=== PATIENT | female | born 1965 | race Two or more races ===

== ENCOUNTER 2025-05-08 18:25 | Emergency (ER) | payer SELFPAY ==
[2025-05-08 18:35] VITALS: BP 138/80; PULSE 93; RESP 18; TEMP 37.2; O2SAT 95; BMI 38.9
--- NOTE | 2025-05-08 18:52 | EKG_ITS ---
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: : 1965 Requested By: Cleve Valencia Order Number: [id number] Reading MD: Cleve Valencia Measurements Intervals [place] Rate: 86 P: 46 AL: 161 QRS: 34 QRSD: 84 T: 57 QT: 351 QTc: 421 Interpretive Statements SINUS RHYTHM INDETERMINATE AXIS LOW QRS VOLTAGE IN PRECORDIAL LEADS [QRS DEFLECTION < 1.0 mV IN CHEST LEADS] POSSIBLE ANTERIOR MYOCARDIAL INFARCTION , OF INDETERMINATE AGE [30 ms Q WAVE IN V3/V4, OR R < 0.2 mV IN V4] Compared to ECG 07/23/2022 15:34:26 Indeterminate axis now present Low QRS voltage now present Myocardial infarct finding now present Sinus bradycardia no longer present /store/S0/[id number]
--- NOTE | 2025-05-08 18:52 | XR_ITS ---
Examination: PA chest single view Technique: Upright PA chest single view Date and time: May 08, 2025 1910 hours INDICATIONS: Chest pain and coughing beginning 2 days ago. FINDINGS: Normal heart size Normal lumbar pneumonia or pulmonary edema Moderate osteopenia IMPRESSION: No lobar pneumonia or pulmonary edema
--- NOTE | 2025-05-08 19:03 | EDNOTE_ITS ---
<Statement entered by Tatiana Kirk MD - 05/09/25 03:41> As co-signing physician, I was present and available for consult prn. I concur with the plan and care as documented by the midlevel provider. ED Chest Pain RME/HPI General Chief Complaint: Shortness of Breath/Dyspnea Stated Complaint: Right facial droop since am, chest pain X 2 days Time Seen by Provider: 05/08/25 18:52 Arrival date/time: 05/08/25 18:25 59F with history of DM presents to ED with 2 days of intermittent CP and cough, as well as 1 day of L facial droop. Patient denies vision changes, AMS, seizures, N/V, and weakness. Limitations: no limitations Related Data Home Medications ?Medication ?Instructions ?Recorded ?Confirmed metformin 500 mg tablet 500 mg PO HS #0 tabs 5 (Glucophage) hydroxyzine HCl 25 mg tablet 25 mg PO Q6HR PRN SLEEPLE SSNESS #0 03/10/17 tabs Previous Rx's ?Medication ?Instructions ?Recorded Hydrocodone/Acetaminophen * (NORCO 1 tab PO Q6H PRN PA IN #12 tabs 04/24/17 5/325 *) tobramycin 0.3 % eye drops 2 drop ophthalmic (eye) Q4H #5 mL 03/19/19 loratadine 10 mg tablet 10 mg PO QDAY #30 tabs 06/18 promethazine-DM 6.25 mg-15 mg/5 mL 5 ml PO Q6H PRN cou gh #118 mL 06/18/21 oral syrup clindamycin HCl 300 mg capsule 300 mg PO TID #21 caps 07/25/22 meloxicam 7.5 mg tablet 7.5 mg PO QDAY #14 tabs 11/0 02/16 sulfamethoxazole 800 1 tab PO BID #20 tabs mg-trimethoprim 160 mg tablet (Bactrim DS) acyclovir 400 mg tablet 400 mg PO Q5H 10 days #48 ta bs 05/08/25 prednisone 20 mg tablet See Rx Instructions .Route 0 05/08/25 .COMPLEX #25 tabs Allergies Allergy/AdvReac Type Severity Reaction Status Date / Time No Known Allergies Allergy Verified 05/08/25 18:32 Review of Systems Review of Systems Systems Reviewed: All systems reviewed, normal except as documented Constitutional Constitutional: Reports system reviewed and no additional complaints, except as documented, Denies fever(s) and Denies headache(s) ENT Ears, Nose, Mouth, and Throat: Denies disequilibrium and Denies headache(s) Cardiovascular Cardiovascular: Reports system reviewed and no additional complaints, except as documented, Reports as per HPI, Reports chest pain and Denies dyspnea Respiratory Respiratory: Reports system reviewed and no additional complaints, except as documented, Reports as per HPI, Reports cough and Denies dyspnea Gastrointestinal Gastrointestinal: Reports system reviewed and no additional complaints, except as documented, Denies abdominal pain, Denies nausea and Denies vomiting Neurologic Neurologic: Reports system reviewed and no additional complaints, except as documented, Reports as per HPI, Denies confusion, Denies disequilibrium, Denies headache(s) and Reports other (facial droop) Psychiatric Psychiatric: Denies confusion Past Medical History Past Medical History NEUROLOGIC: Negative Seizures CARDIAC: Negative Cardiac Disorders or Congestive Heart Failure RESPIRATORY: Negative Chronic Obstructive Pulmonary Disease (COPD) GENITOURINARY: Negative Genitourinary Disorders or Renal Disease MUSCULOSKELETAL: Negative Musculoskeletal Disorders ENDOCRINE: Positive Diabetes Mellitus Type 2; Negative Diabetes Mellitus Type 1 HEMATOLOGIC: Negative Blood Disorders OTHER HISTORY: Negative Blood Transfusions, Blood Transfusion Reaction or Anesthesia Reactions Social History SMOKING STATUS: Current every day smoker SECOND HAND EXPOSURE: No SUBSTANCE USE: does not use ED Exam General Limitations: Present no limitations General appearance: Present alert and in no apparent distress Head Head exam: Present atraumatic Eye Eye exam: Present normal appearance, PERRL and EOMI ENT ENT exam: Present normal oropharynx, mucous membranes moist and other (L facial droop) Neck Neck exam: Present normal inspection, full ROM and trachea midline Chest Chest inspection: Present normal inspection and symmetric chest wall rise Respiratory Respiratory exam: Present normal lung sounds bilaterally Cardiovascular Cardiovascular exam: Present regular rate, normal rhythm and normal heart sounds Abdominal Exam Abdominal exam: Present soft and normal bowel sounds Extremities Exam Extremities exam: Present normal inspection and full ROM Back Exam Back exam: Present normal inspection and full ROM Neurological Exam Neurological exam: Present alert, oriented X3 and CN II-XII intact Psychiatric Psychiatric exam: Present normal affect and normal mood Skin Skin exam: Present warm, dry, intact and normal color Course Quality Measures none Orders Category Date Time Status Bedside COVID-19 Antigen Test NOW Care 05/08/25 18:52 Active Bedside Influenza A&B Antigen Test NOW Care 05/08/25 18:53 Completed EKG (ED ONLY) *Do not use* NOW Care 05/08/25 18:52 Completed EKG (ED Only) Stat Exams 05/08/25 18:52 Draft XR chest 1V portable Stat Exams 05/08/25 18:52 Completed B-Type Natriuretic Peptide Stat Lab 05/08/25 19:29 Completed CBC Stat Lab 05/08/25 19:29 Completed Comprehensive Metabolic Panel Stat Lab 05/08/25 19:29 Completed Troponin I Stat Lab 05/08/25 19:29 Completed Acyclovir [Zovirax] Med 05/08/25 18:54 Discontinued 800 mg PO X1 ONE predniSONE Med 05/08/25 18:54 Discontinued 60 mg PO X1 ONE Vital Signs Vital signs: Vital Signs Temperature 99 F 05/08/25 18:35 Pulse Rate 93 05/08/25 18:35 Respiratory Rate 18 05/08/25 18:35 Blood Pressure 138/80 H 05/08/25 18:35 Pulse Oximetry (%) 95 05/08/25 18:35 Oxygen Delivery Method Room Air 05/08/25 18:35 O2 at 95% on RA and WNLs Chest Pain MDM Narrative MDM Narrative:: 59F with history of DM presents to ED with 2 days of intermittent CP and cough, as well as 1 day of L facial droop. Patient denies vision changes, AMS, seizures, N/V, and weakness. Physical exam reveals L facial droop including reduced forehead movement and L eyelid blinking. Normal pupil response and EOM. Strength equal bilaterally. Gait normal. Clear lungs. Normal WOB. Patient is afebriel, calm, and alert. EKG is NSR. No leukocytosis. CMP unremarkable. CXR normal. Normal trop and BNP. 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 Patient data External records reviewed:: [facility] previous records Clinical information provided by:: patient Social determinants that could affect healthcare access:: none Patient has the following chronic illnesses:: DM How is presenting disease/condition affected by chronic disease/condition?: exacerbated by Evaluation data The following diagnostics were reviewed and interpreted by me:: lab results, radiology exam(s) and EKG tracing(s) Lab and/or radiology exams considered but not ordered:: ordered Interpretation Summary: above Medications / Prescriptions Medications or Prescriptions considered but not ordered:: ordered Medication administrations:: Medication Administration History Discontinued Medications Acyclovir (Acyclovir 800 Mg Tablet) 800 mg PO X1 ONE Stop: 05/08/25 18:55 Last Admin: 05/08/25 19:27 Dose: 800 mg Documented By: OA Prednisone (Prednisone 20 Mg Tablet) 60 mg PO X1 ONE Stop: 05/08/25 18:55 Last Admin: 05/08/25 19:27 Dose: 60 mg Documented By: OLGA above Consultations Consultation(s) initiated? (list below): No Diagnosis Chest Pain Differential Diagnosis: fracture of rib, pneumothorax, stable angina, unstable angina pectoris, atypical chest pain, st elevation myocardial infarction, costochondritis, chest pain, biliary colic and other (CVA/TIA, Melo's Palsy) Most likely diagnosis given after review of the tests above:: atypical chest pain and Melo's Palsy Admission Indicated Admission indicated?: not indicated Admission Request Was there a request for admission?: No Disposition Plan Disposition Plan: Discharge Discharge Attestation Discharge Attestation: The patient and all family members were given an opportunity to ask questions and understood the discharge instructions. Discharge instructions specifically effects, indications for sooner follow up or return to the emergency department, and the expected course of current diagnosis. Patient condition: Stable Discharge Plan Plan Patient Disposition: HOME (Self Care) Discharge Disposition comment: Stable Prescriptions/Referrals Prescriptions/Med Rec: New prednisone 20 mg tablet See Rx Instructions .ROUTE .COMPLEX Qty: 25 0RF Rx Instructions: Take 60 mg (3 pills) per day for first 5 days, then 40 mg (2 pills) for remaining 5 days. acyclovir 400 mg tablet 400 mg PO Q5H 10 Days Qty: 48 0RF Rx Instructions: Take 5 per day until done. No Action metformin [Glucophage] 500 MG tablet 500 mg PO HS Qty: 0 hydroxyzine HCl 25 MG tablet 25 mg PO Q6HR PRN (Reason: SLEEPLESSNESS) Qty: 0 Hydrocodone/Acetaminophen * (NORCO 5/325 *) 1 TAB tablet 1 tab PO Q6H PRN (Reason: PAIN) Qty: 12 0RF promethazine-DM 6.25-15 mg/5 mL syrup 5 ml PO Q6H PRN (Reason: cough) Qty: 118 0RF loratadine 10 mg tablet 10 mg PO QDAY Qty: 30 0RF tobramycin 0.3 % drops 2 drop OPHTHALMIC Q4H Qty: 5 0RF clindamycin HCl 300 mg capsule 300 mg PO TID Qty: 21 0RF sulfamethoxazole-trimethoprim [Bactrim DS] 800-160 mg tablet 1 tab PO BID Qty: 20 0RF meloxicam 7.5 mg tablet 7.5 mg PO QDAY Qty: 14 0RF Referrals: Garett Gan MD [Primary Care Provider] - In 1 week Problem List Clinical Impression: Melo's palsy, Atypical chest pain Patient/Caregiver Discharge Instructions Education Materials: ED Melo's Palsy, ED Chest Pain, Uncertain Cause Additional Instructions: Please follow-up with PCP within 24-48 hours and return immediately if symptoms worsen. Steroids will increase your blood sugar, so check your sugars more closely. Print Language: Yakut Stand Alone Forms: Patient Portal Info Letter PA/PLUMBING ENGINEER Supervising Physician SUSAN/OZZY Supervising Physician: Dr. Kirk
[2025-05-08] MEDS: ACYCLOVIR 800 MG TABLET PO (19:27)
[2025-05-08] MEDS: predniSONE 20 MG TABLET 60 MG PO (19:27)
[2025-05-08 19:46] LABS: Basophils % (Auto) 0 % (0-2.5); Eosinophils # (Auto) 0.6 Thou/mm3 (0.0-0.5); Eosinophils % (Auto) 6 % (0-10); Hematocrit 41.8 % (36.0-46.0); Hemoglobin 14.9 g/dL (12.0-16.0); Immature Granulocytes % (Auto) 0 % (0-0); Immature Granulocytes Auto 0.02 Thou/mm3 (0.00-0.00); Lymphocytes # (Auto) 2.3 Thou/mm3 (1.0-4.8); Lymphocytes % (Auto) 22 % (10-50); Mean Corpuscular HGB Conc 35.6 g/dl (31.0-37.0); Mean Corpuscular Hemoglobin 31.4 pg (25.0-35.0); Mean Corpuscular Volume 88 fL (80-100); Monocytes # (Auto) 0.9 Thou/mm3 (0.0-0.8); Monocytes % (Auto) 8 % (0-12); Neutrophils # (Auto) 6.7 Thou/mm3 (1.8-7.7); Neutrophils % (Auto) 64 % (37-80); Nucleated Red Blood Cell % 0 /100 WBC (0); Platelet Count 260 Thou/mm3 (140-440); RDW Standard Deviation 44.6 fL (36.4-46.3); Red Blood Count 4.74 Miln/mm3 (4.00-5.20); White Blood Count 10.5 Thou/mm3 (3.6-11.0)
[2025-05-08 20:09] LABS: Alanine Aminotransferase 18 U/L (10-49); Albumin, Serum 4.3 gm/dL (3.5-5.0); Albumin/Globulin Ratio 1.6 (1.2-2.2); Alkaline Phosphatase 100 U/L (46-116); Anion Gap 8 (7-16); Aspartate Amino Transferase 14 U/L (0-34); BUN/Creatinine Ratio 20 Ratio (12-20); Bilirubin,Total 0.4 mg/dL (0.3-1.2); Blood Urea Nitrogen 12 mg/dL (9-23); Calcium 9.5 mg/dL (8.3-10.6); Calcium (Corrected) 9.5 mg/dL (8.5-10.1); Carbon Dioxide 29.2 mMol/L (20.0-31.0); Chloride 105 mMol/L (98-107); Creatinine (Component) 0.6 mg/dL (0.6-1.3); Estimated Creatinine Clearance 115.1 mL/min (>60); Globulin 2.7 gm/dL (2.3-3.5); Glucose 125 mg/dL (74-106); Osmolality,Calculated 283 (275-295); Sodium 142 mMol/L (136-145); Troponin I < 0.002 ng/mL (0.0-0.045); eGFR > 60 See Note
[2025-05-08 20:10] LABS: B-Type Natriuretic Peptide 48 pg/mL (0-100)
== END 2025-05-08 20:52 | disposition home or self-care (01) ==
PROVIDERS: Physician Assistant; Emergency Provider Emergency Medicine; PCP Family Medicine
DX: G51.0 Bell's palsy (principal); R07.89 Other chest pain; R05.9 Cough, unspecified; R94.31 Abnormal electrocardiogram [ECG] [EKG]
CPT/HCPCS: 36415; 71045; 80053; 83880; 84484; 85025; 87400; 87811; 93005; 99283; J7512; A9270

== ENCOUNTER 2025-08-23 17:59 | Emergency (ER) | payer MEDICAID, SELFPAY ==
[2025-08-23 18:49] VITALS: BP 106/69; PULSE 83; RESP 16; TEMP 37; O2SAT 94
--- NOTE | 2025-08-23 19:48 | PD.EDRME ---
Rapid Medical Screening Exam RME Arrival date/time: 08/23/25 17:59 This is a case of 60-year-old female with no medical history came in in the emergency room due to on and off headache for 1 week associated with abdominal pain nausea vomiting worsening of the symptoms this patient decided to start consult here in the emergency room Chief Complaint: Headache Time Seen by Provider: 08/23/25 18:38 Vital signs: Vital Signs Temperature 98.6 F 08/23/25 18:49 Pulse Rate 83 08/23/25 18:49 Respiratory Rate 16 08/23/25 18:49 Blood Pressure 106/69 08/23/25 18:49 Pulse Oximetry (%) 94 L 08/23/25 18:49 Oxygen Delivery Method Room Air 08/23/25 18:49
--- NOTE | 2025-08-23 20:07 | PD.EDHA ---
ED Headache RME/HPI General Chief Complaint: Headache Stated Complaint: HEADACHE, NAUSEA, JUST WANTS TO SLEEP Time Seen by Provider: 08/23/25 18:38 Arrival date/time: 08/23/25 17:59 RME / HPI RME / HPI Narrative: 08/23/25 17:59 This is a case of 60-year-old female with no medical history came in in the emergency room due to on and off headache for 1 week associated with abdominal pain nausea vomiting worsening of the symptoms this patient decided to start consult here in the emergency room DR. NJ MAIN ED EVALUATION: 60 y/o male with NIDDM now presenting with mild frontal headache, occasional nausea, abdominal discomfort, and poor appetite for several days. Denies definite fever or chills, no vomiting or diarrhea. Headache reduces with exertion, additionally denies URI or cough. No dysuria, urinary urgency or frequency. PMH: Type II DM PSH: Tubal ligation and cholecystectomy Allergies: None Social: Negative for alcohol, tobacco, or illicit drug abuse. Related Data Home Medications ?Medication ?Instructions ?Recorded ?Confirmed metformin 500 mg tablet 500 mg PO HS #0 tabs 07/19/15 (Glucophage) hydroxyzine HCl 25 mg tablet 25 mg PO Q6HR PRN SLEEPLESSNESS #0 03/10/17 tabs Previous Rx's ?Medication ?Instructions ?Recorded Hydrocodone/Acetaminophen * (NORCO 1 tab PO Q6H PRN PAIN #12 tabs 04/24/17 5/325 *) tobramycin 0.3 % eye drops 2 drop ophthalmic (eye) Q4H #5 mL 03/19/19 loratadine 10 mg tablet 10 mg PO QDAY #30 tabs 06/18/21 promethazine-DM 6.25 mg-15 mg/5 mL 5 ml PO Q6H PRN cough #118 mL 06/18/21 oral syrup clindamycin HCl 300 mg capsule 300 mg PO TID #21 caps 07/25/22 meloxicam 7.5 mg tablet 7.5 mg PO QDAY #14 tabs 09/28/24 sulfamethoxazole 800 1 tab PO BID #20 tabs 11/03/24 mg-trimethoprim 160 mg tablet (Bactrim DS) prednisone 20 mg tablet See Rx Instructions .Route 05/08/25 .COMPLEX #25 tabs acetaminophen 300 mg-codeine 15 mg 1 tab PO Q8H PRN pain #20 tabs 08/24/25 tablet cefdinir 300 mg capsule 300 mg PO BID 5 days #10 caps 08/24/25 promethazine 12.5 mg tablet 12.5 mg PO TID PRN nausea and 08/24/25 vomiting #14 tabs Allergies Allergy/AdvReac Type Severity Reaction Status Date / Time No Known Allergies Allergy Verified 08/23/25 18:04 Review of Systems Review of Systems Systems Reviewed: All systems reviewed, normal except as documented Past Medical History Past Medical History ENDOCRINE: Positive Diabetes Mellitus Type 2 Social History SMOKING STATUS: Current every day smoker ED Exam Narrative Physical exam: GEN. APPEARANCE: The patient is alert awake oriented X-3 in no distress, lying down comfortably, does not look ill/toxic. Patient has good eye contact. Patient is cooperative. VITALS: All vitals were reviewed and the pulse ox is 94% on room air which is low according to my interpretation. HEENT: Normocephalic, atraumatic. Pupils are equal and reactive. Oral mucosa is moist. Patent Nares NECK: Supple, nontender, no thyromegaly, no meningismus, no JVD, no step offs CHEST: Symmetrical, atraumatic, and with equal expansion , Nontender on palpation no deformity and no crepitus. CARDIOVASCULAR: Heart regular rhythm no murmur or gallop rub or extra beats. LUNGS: Clear to auscultation bilaterally with symmetrical chest rise. No laboring tachypnea or wheezing. No intercostal subcostal retraction. No rales and no rhonchi. ABDOMEN: Soft, flat, nontender to palpation, no guarding or rebound tenderness. There are no abnormal masses palpated. Active and normal bowel sounds. EXTREMITIES: Nontender. No edema. No cyanosis. Patient is able to move all 4 extremities well, with full ROM and good CSM. SKIN: Warm and dry, no jaundice or rashes noted. MUSCULOSKELETAL: No lubar or midline bony tenderness. There is no CVA tenderness. No paraspinal muscle spasm or tenderness. NEURO: Patient is NORRIS x 4, Cranial nerves II through XII grossly intact. There is no focal neurologic deficits noted. GCS is 15, PNS and VEHICLE DAMAGE APPRAISER appear grossly intact. PSYCHIATRIC: Patient is in normal mood and affect, cooperative, no SI or HI or hallucinations. Course Quality Measures none Orders Category Date Time Status Bedside COVID-19 Antigen Test NOW Care 08/23/25 19:47 Completed Bedside Influenza A&B Antigen Test NOW Care 08/23/25 19:48 Completed CBC Stat Lab 08/23/25 19:54 Completed CMP [Comprehensive Metabolic Panel] Stat Lab 08/23/25 19:54 Completed Lipase Stat Lab 08/23/25 19:54 Completed Urinalysis Stat Lab 08/23/25 20:48 Completed Morphine* Inj Med 08/23/25 20:18 Discontinued 2 mg IVP X1 ONE Prochlorperazine Inj [Compazine Inj] Med 08/23/25 20:18 Discontinued 5 mg IV X1 ONE Sodium Chloride 0.9% 1000 ml [Ns] 1,000 ml Med 08/23/25 20:18 Discontinued IV 999 mls/hr Vital Signs Vital signs: Vital Signs Temperature 98.6 F 08/23/25 18:49 Pulse Rate 83 08/23/25 18:49 Respiratory Rate 16 08/23/25 18:49 Blood Pressure 106/69 08/23/25 18:49 Pulse Oximetry (%) 94 L 08/23/25 18:49 Oxygen Delivery Method Room Air 08/23/25 18:49 Headache MDM Narrative MDM Narrative:: Scribe Attestation: Meg Martino, am scribing for and in the presence of Dr. Nj. Provider Notation: Although this document has been carefully reviewed, there may still be some phonetic and other typographical errors. These errors are purely grammatical due to imperfections in the software program and should not be construed in any way to compromise the substance of the patient's medical care during this visit. 60 y/o male with NIDDM now presenting with mild frontal headache, occasional nausea, abdominal discomfort, and poor appetite for several days. Denies definite fever or chills, no vomiting or diarrhea. Please see PE findings. Laboratory markers demonstrated a normal WBC, no anemia, and no thrombocytopenia. No left shift or associated bandemia. Serum chemistries were essentially unremarkable with glucose mildly elevated at 132, UA demonstrates leukoseria with positive leukocyte esterase, pyuria, and rare bacteria. Specimen is considered to be a contaminant. Established IV and administered IV fluids, low-dose narcotic analgesics, anti-emetics with [id number] relief. Patient with likely underlying viral illness, will consider short course of ABX for equivocal UTI, with low-dose analgesics and anti-emetics. Recommended close F/U with PMD in 3-5 days. Patient data External records reviewed:: [facility] previous records (Reviewed prior ED records from 05/08/25. Patient was seen for Atypical chest pain.) Clinical information provided by:: patient Social determinants that could affect healthcare access:: none Patient has the following chronic illnesses:: Type II DM How is presenting disease/condition affected by chronic disease/condition?: exacerbated by Evaluation data The following diagnostics were reviewed and interpreted by me:: lab results Lab and/or radiology exams considered but not ordered:: None Interpretation Summary: See MDM above Medications / Prescriptions Medications or Prescriptions considered but not ordered:: None Medication administrations:: Medication Administration History Discontinued Medications Sodium Chloride (Ns) 1,000 mls @ 999 mls/hr IV .Q1H1M ONE Stop: 08/23/25 21:18 Last Infusion: 08/24/25 00:30 Dose: Infused Documented By: Admin: 08/23/25 23:25 Dose: 999 mls/hr Documented By: NASIM Morphine Sulfate (Morphine Sulf Inj 4 Mg/Ml Vial) 2 mg IVP X1 ONE Stop: 08/23/25 20:19 Last Admin: 08/23/25 23:25 Dose: 2 mg Documented By: NASIM Prochlorperazine Edisylate (Prochlorperazine Inj 5 Mg/Ml Vial 2 Ml) 5 mg IV X1 ONE; Protocol Stop: 08/23/25 20:19 Last Admin: 08/23/25 23:26 Dose: 5 mg Documented By: NASIM See above if any Consultations Consultation(s) initiated? (list below): No Diagnosis Differential diagnosis headache: migraine, tension headache, headache and sinusitis Most likely diagnosis given after review of the tests above:: UTI, Viral illness Admission Indicated Admission indicated?: not indicated Explain why admission is indicated or not indicated:: Patient does not meet admission criteria Admission Request Was there a request for admission?: No Disposition Plan Disposition Plan: Discharge Discharge Attestation Discharge Attestation: The patient and all family members were given an opportunity to ask questions and understood the discharge instructions. Discharge instructions specifically effects, indications for sooner follow up or return to the emergency department, and the expected course of current diagnosis. Patient condition: Stable Discharge Plan Plan Patient Disposition: HOME (Self Care) Discharge Disposition comment: Stable Prescriptions/Referrals Prescriptions/Med Rec: New acetaminophen-codeine 300-15 mg tablet 1 tab PO Q8H PRN (Reason: pain) Qty: 20 0RF cefdinir 300 mg capsule 300 mg PO BID 5 Days Qty: 10 0RF promethazine 12.5 mg tablet 12.5 mg PO TID PRN (Reason: nausea and vomiting) Qty: 14 0RF No Action metformin [Glucophage] 500 MG tablet 500 mg PO HS Qty: 0 hydroxyzine HCl 25 MG tablet 25 mg PO Q6HR PRN (Reason: SLEEPLESSNESS) Qty: 0 Hydrocodone/Acetaminophen * (NORCO 5/325 *) 1 TAB tablet 1 tab PO Q6H PRN (Reason: PAIN) Qty: 12 0RF promethazine-DM 6.25-15 mg/5 mL syrup 5 ml PO Q6H PRN (Reason: cough) Qty: 118 0RF loratadine 10 mg tablet 10 mg PO QDAY Qty: 30 0RF tobramycin 0.3 % drops 2 drop OPHTHALMIC Q4H Qty: 5 0RF clindamycin HCl 300 mg capsule 300 mg PO TID Qty: 21 0RF sulfamethoxazole-trimethoprim [Bactrim DS] 800-160 mg tablet 1 tab PO BID Qty: 20 0RF meloxicam 7.5 mg tablet 7.5 mg PO QDAY Qty: 14 0RF prednisone 20 mg tablet See Rx Instructions .ROUTE .COMPLEX Qty: 25 0RF Rx Instructions: Take 60 mg (3 pills) per day for first 5 days, then 40 mg (2 pills) for remaining 5 days. Referrals: Garett Gan MD [Primary Care Provider, Family Practice] - In 1 week Problem List Clinical Impression: Systemic viral illness, Viral illness, UTI (urinary tract infection) Patient/Caregiver Discharge Instructions Discharge Activity: activity as tolerated Diet Instructions: Force fluids Education Materials: ED CYSTITIS Female Adult, ED Viral Syndrome (Adult) Additional Instructions: Force fluids/medications as directed/follow-up with primary care doctor in 3 to 5 days return if worsening. Print Language: Trinidadian Stand Alone Forms: Kanchan Award Info., Patient Portal Info Letter
[2025-08-23 20:09] LABS: Basophils # (Auto) 0.0 Thou/mm3 (0.0-0.2); Basophils % (Auto) 0 % (0-2.5); Eosinophils # (Auto) 0.4 Thou/mm3 (0.0-0.5); Eosinophils % (Auto) 4 % (0-10); Hematocrit 45.5 % (36.0-46.0); Hemoglobin 15.3 g/dL (12.0-16.0); Immature Granulocytes Auto 0.03 Thou/mm3 (0.00-0.00); Lymphocytes # (Auto) 2.0 Thou/mm3 (1.0-4.8); Lymphocytes % (Auto) 19 % (10-50); Mean Corpuscular HGB Conc 33.6 g/dl (31.0-37.0); Mean Corpuscular Hemoglobin 31.4 pg (25.0-35.0); Mean Corpuscular Volume 93 fL (80-100); Monocytes # (Auto) 0.9 Thou/mm3 (0.0-0.8); Monocytes % (Auto) 8 % (0-12); Neutrophils # (Auto) 7.3 Thou/mm3 (1.8-7.7); Neutrophils % (Auto) 68 % (37-80); Nucleated Red Blood Cell # 0.00 Thou/mm3 (0.00-0.00); Nucleated Red Blood Cell % 0 /100 WBC (0); Platelet Count 307 Thou/mm3 (140-440); RDW Standard Deviation 45.4 fL (36.4-46.3); Red Blood Count 4.88 Miln/mm3 (4.00-5.20); White Blood Count 10.7 Thou/mm3 (3.6-11.0)
[2025-08-23 20:34] LABS: Alanine Aminotransferase 21 U/L (10-49); Albumin, Serum 4.6 gm/dL (3.5-5.0); Albumin/Globulin Ratio 1.5 (1.2-2.2); Alkaline Phosphatase 87 U/L (46-116); Anion Gap 7 (7-16); Aspartate Amino Transferase 18 U/L (0-34); BUN/Creatinine Ratio 19 Ratio (12-20); Bilirubin,Total 0.7 mg/dL (0.3-1.2); Blood Urea Nitrogen 13 mg/dL (9-23); Calcium 10.0 mg/dL (8.3-10.6); Calcium (Corrected) 10.0 mg/dL (8.5-10.1); Carbon Dioxide 30.6 mMol/L (20.0-31.0); Chloride 102 mMol/L (98-107); Creatinine (Component) 0.7 mg/dL (0.6-1.3); Globulin 3.1 gm/dL (2.3-3.5); Glucose 132 mg/dL (74-106); Osmolality,Calculated 281 (275-295); Potassium 3.8 mMol/L (3.4-5.1); Sodium 140 mMol/L (136-145); Total Protein 7.7 gm/dL (5.7-8.2); eGFR > 60 See Note
[2025-08-23 21:00] LABS: Lipase 26 U/L (12-53)
[2025-08-23 21:22] LABS: Collection Type, Urine Voided
[2025-08-23 21:45] LABS: Bacteria,Urine Rare; Bilirubin,Urine Negative (Negative); Blood,Urine Negative (Negative); Clarity,Urine Turbid (Clear/Hazy); Color,Urine Yellow (Lt Yel-Yel); Glucose, Urine 4+ (Negative); Hyaline Casts,Urine < 1 /hpf (0-1); Ketones,Urine Negative (Negative); Leukocyte Esterase,Urine Positive (Negative); Nitrite,Urine Negative (Negative); PH,Urine 6.0 (5.0-7.0); Protein,Urine Trace (Neg - Trace); RBC,Urine 2 /hpf (0-3); Specific Gravity,Urine 1.018 (1.001-1.035); Squamous Epithelial Cell,Urine 12 /hpf (0-5); Urobilinogen,Urine Negative mg/dL (0.0-1.0); WBC,Urine 25 /hpf (0-5)
[2025-08-23] MEDS: SODIUM CHLORIDE 0.9% 1000 ML 1,000 ML 999 ML IV (23:25)
[2025-08-23] MEDS: MORPHINE SULF INJ 4 MG/ML VIAL 2 MG IVP (23:25)
[2025-08-23] MEDS: PROCHLORPERAZINE INJ 5 MG/ML VIAL 2 ML IV (23:26)
[2025-08-24 01:11] VITALS: BP 115/72; PULSE 84; RESP 18; TEMP 36.6; O2SAT 98
== END 2025-08-24 01:25 | disposition home or self-care (01) ==
PROVIDERS: Nurse Practitioner Family; Emergency Provider Emergency Medicine; PCP Family Medicine
DX: B34.9 Viral infection, unspecified (principal); N39.0 Urinary tract infection, site not specified
CPT/HCPCS: 36415; 80053; 81001; 83690; 85025; 87400; 87811; 96361; 96374; 99284; J0780; J2270; J7030